=== PATIENT | female | born 1970 | race Caucasian/White ===

== ENCOUNTER 2017-01-25 16:27 | Emergency (ER) | payer OTHER ==
[~2017-01-25] VITALS: Ht 170.2 cm; Wt 72.6 kg
[2017-01-25 16:41] VITALS: BP 158/103
[2017-01-25 17:03] LABS: INFLUENZA A PATIENT NEGATIVE (NEGATIVE); INFLUENZA B PATIENT NEGATIVE (NEGATIVE)
--- NOTE | 2017-01-25 17:11 | PHYS DOC ---
Past History Past Medical History: Asthma Past Surgical History: Tonsillectomy Alcohol Use: Rarely Drug Use: None Adult General Chief Complaint Chief Complaint: FLU SYMPTOM HPI HPI Patient is a 46-year-old female presents with malaise. 46-year-old female history of mono in the past presents with malaise. She's been running a low-grade temperature at home. 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 She has no headache. No fevers over 99.6. No cough. She's been having whole-body pain. No specific chest pain. She's not been coughing up any sputum. She is currently on clindamycin for urinary tract infection. She's not had any diarrhea. No other complaints currently. Review of Systems Review of Systems Constitutional: Has had some chills Eyes: Denies change in visual acuity, redness, or eye pain HENT: Minimal sore throat Respiratory: Denies cough or shortness of breath Cardiovascular: No additional information not addressed in HPI GI: Denies abdominal pain, nausea, vomiting, bloody stools or diarrhea : Denies dysuria or hematuria Musculoskeletal: Denies back pain or joint pain Integument: Denies rash or skin lesions Neurologic: Denies headache, focal weakness or sensory changes Endocrine: Denies polyuria or polydipsia All other systems were reviewed and found to be within normal limits, except as documented in this note. Allergies Allergies Allergies Coded Allergies Type Severity Reaction Last Updated Verified No Known Drug Allergies 04/15/14 No Physical Exam Physical Exam Constitutional: Well developed, well nourished, no acute distress, non-toxic appearance. HENT: Normocephalic, atraumatic, bilateral external ears normal, oropharynx moist, no oral exudates, nose mild rhinorrhea. Eyes: PERRLA, EOMI, conjunctiva normal, no discharge. Neck: Normal range of motion, no tenderness, supple, no stridor. Cardiovascular:Heart rate regular rhythm, no murmur Lungs & Thorax: Bilateral breath sounds clear to auscultation Abdomen: Bowel sounds normal, soft, no tenderness, no masses, no pulsatile masses. Skin: Warm, dry, no erythema, no rash. Back: No tenderness, no CVA tenderness. Extremities: No tenderness, no cyanosis, no clubbing, ROM intact, no edema. Neurologic: Alert and oriented X 3, normal motor function, normal sensory function, no focal deficits noted. Psychologic: Affect normal, judgement normal, mood normal. Current Patient Data Vital Signs Vital Signs Date Time Temp Pulse Resp B/P (MAP) Pulse Ox O2 Delivery O2 Flow Rate FiO2 01/25/17 16:41 98.7 75 20 99 Room Air Lab Results Laboratory Tests Test 01/25/17 16:35 Influenza Type A (Rapid) Negative (NEGATIVE) Influenza Type B (Rapid) Negative (NEGATIVE) EKG EKG [] Radiology/Procedures Radiology/Procedures My interpretation of chest x-ray shows no acute cardiopulmonary findings.[] Course & Med Decision Making Course & Med Decision Making Pertinent Labs and Imaging studies reviewed. (See chart for details) Influenza is negative and patient agrees to further workup. Will order labs. Pt. Endorsed to Dr. Peña at 6 pm. Anticipated dismissal. See Dr. Erwin chart for details. Review of labs showed slightly elevated creatinine at 1.5. All labs were within normal limits. No findings of strep or flu. Did have some hematuria. Patient currently on her period. Pt. to follow up with primary. Tylenol, ibuprofen and benadryl over the counter. Review ED work up with primary Push fluids and fruit juices. Impression: 1. Viral Syndrome [] Dragon Disclaimer Dragon Disclaimer This electronic medical record was generated, in whole or in part, using a voice recognition dictation system. Departure Departure: Referrals: PARMJIT PEPPER (PCP) JAYY CEDILLO MD Jan 25, 2017 17:11 AYAKA GALARZA MD Jan 26, 2017 05:25
[2017-01-25 17:50] LABS: BASO % 1 % (0-3); EOS # 0.2 x10^3/uL (0.0-0.7); EOS % 2 % (0-3); HEMATOCRIT 40.1 % (36.0-47.0); HEMOGLOBIN 13.8 g/dL (12.0-15.5); LYMPH # 1.6 x10^3/uL (1.0-4.8); LYMPH % 19 % (24-48); MEAN CORPUSCULAR HEMOGLOBIN 30 pg (25-35); MEAN CORPUSCULAR HGB CONC 34 g/dL (31-37); MEAN CORPUSCULAR VOLUME 88 fL (79-100); MONO # 0.6 x10^3/uL (0.0-1.1); MONO % 7 % (0-9); NEUT # 5.9 x10^3uL (1.8-7.7); NEUT % 71 % (31-73); PLATELET COUNT 246 x10^3/uL (140-400); RED BLOOD COUNT 4.57 x10^6/uL (3.50-5.40); RED CELL DISTRIBUTION WIDTH 13.1 % (11.5-14.5); WHITE BLOOD COUNT 8.3 x10^3/uL (4.0-11.0)
[2017-01-25 17:59] LABS: ALBUMIN 3.8 g/dL (3.4-5.0); CALCIUM 9.8 mg/dL (8.5-10.1); CREATININE 0.5 mg/dL (0.6-1.0); POTASSIUM 3.8 mmol/L (3.5-5.1); TOTAL BILIRUBIN 0.3 mg/dL (0.2-1.0); TOTAL PROTEIN 7.8 g/dL (6.4-8.2)
[2017-01-25 18:07] LABS: MONONUCLEOSIS PATIENT NEGATIVE (NEGATIVE)
[2017-01-25 19:14] LABS: BILIRUBIN,URINE NEG (NEG); CLARITY,URINE CLEAR; COLOR,URINE STRAW; GLUCOSE,URINE NEG (NEG); NITRITE,URINE NEG (NEG); UROBILINOGEN,URINE 0.2 mg/dL (0.2 mg/dL)
[2017-01-25 19:15] LABS: BACTERIA,URINE 0 /HPF (0-FEW); RBC,URINE 20-40 /HPF (0-2); SQUAMOUS EPITHELIAL CELL,UR MOD /LPF
--- NOTE | 2017-01-26 08:02 | RAD ---
Single view chest 01/25/2017 Clinical indication: Extreme fatigue, mononucleosis. Comparison: None. Findings: Cardiac and mediastinal silhouettes are unremarkable. No pleural effusion, pneumothorax or focal consolidation. Impression: No acute cardiopulmonary abnormality.
== END 2017-01-25 20:15 | disposition home or self-care (01) ==
LOC: ER 16:27
DX: B34.9 Viral infection, unspecified (principal); J45.909 Unspecified asthma, uncomplicated; Z87.440 Personal history of urinary (tract) infections
CPT/HCPCS: 36415; 71010; 80053; 81001; 85025; 86308; 87070; 87086; 87804; 87880; 99285-25

== ENCOUNTER 2017-03-08 18:18 | Emergency (ER) | payer OTHER ==
[~2017-03-08] VITALS: Ht 170.2 cm; Wt 72.6 kg
[2017-03-08 18:20] VITALS: BP 139/89
--- NOTE | 2017-03-08 18:34 | ED.ADGEN ---
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 Patient hasn't had a flu vaccination this year. Patient has been exposed to multiple patient's that been sick. No recent travel. Patient normally healthy. Patient follows with Dr. Tico Cherry Review of Systems Review of Systems Constitutional: History of fever or chills [] Eyes: Denies change in visual acuity, redness, or eye pain [] HENT: History of nasal congestion and sore throat [] Respiratory: History of cough Cardiovascular: No additional information not addressed in HPI [] GI: Denies abdominal pain, nausea, vomiting, bloody stools or diarrhea [] : Denies dysuria or hematuria [] Musculoskeletal: Denies back pain or joint pain [] Integument: Denies rash or skin lesions [] Neurologic: Denies headache, focal weakness or sensory changes [] Endocrine: Denies polyuria or polydipsia [] All other systems were reviewed and found to be within normal limits, except as documented in this note. Family History Family History Noncontributory Current Medications Current Medications Current Medications Medications (Trade) Dose Ordered Sig/Makenna Start Time Stop Time Status Last Admin Dose Admin Oseltamivir Phosphate (Tamiflu) 75 mg 1X ONCE 03/08/17 19:45 03/08/17 19:46 DC 03/08/17 19:36 75 MG Allergies Allergies Allergies Coded Allergies Type Severity Reaction Last Updated Verified No Known Drug Allergies 04/15/14 No Physical Exam Physical Exam Constitutional: Well developed, well nourished, in moderately acute distress, non-toxic appearance. [] HENT: Normocephalic, atraumatic, bilateral external ears normal, oropharynx moist, injected pharynx, no oral exudates, nose swollen turbinates and rhinorrhea Eyes: PERRLA, EOMI, conjunctiva normal, no discharge. [] Neck: Normal range of motion, no tenderness, supple, no stridor. [] Cardiovascular:Heart rate regular rhythm, no murmur [] Lungs & Thorax: Bilateral breath sounds clear to auscultation [] Abdomen: Bowel sounds normal, soft, no tenderness, no masses, no pulsatile masses. [] Skin: Warm, dry, no erythema, no rash. [] Back: No tenderness, no CVA tenderness. [] Extremities: No tenderness, no cyanosis, no clubbing, ROM intact, no edema. [] Neurologic: Alert and oriented X 3, normal motor function, normal sensory function, no focal deficits noted. [] Psychologic: Affect normal, judgement normal, mood normal. [] Current Patient Data Lab Results Laboratory Tests Test 03/08/17 18:38 Influenza Type A (Rapid) Negative (NEGATIVE) Influenza Type B (Rapid) Positive (NEGATIVE) Group A Streptococcus Rapid Negative (NEGATIVE) EKG EKG [] Radiology/Procedures Radiology/Procedures [] Course & Med Decision Making Course & Med Decision Making Pertinent Labs and Imaging studies reviewed. (See chart for details) Push fluids. Tylenol and ibuprofen for discomfort. Take Tamiflu as directed. Vicoprofen for marked discomfort. Zofran for nausea. Follow-up primary care. [] Final Impression Final Impression 1. Viral syndrome 2. Influenza B[] Problems: Dragon Disclaimer Dragon Disclaimer This electronic medical record was generated, in whole or in part, using a voice recognition dictation system. AYAKA GALARZA MD Mar 08, 2017 18:34
[2017-03-08] MEDS ORDERED: HYDR-79 PO (18:45)
[2017-03-08] MEDS ORDERED: ONDA8TAB12 PO (18:45)
[2017-03-08 19:05] LABS: INFLUENZA A PATIENT NEGATIVE (NEGATIVE); INFLUENZA B PATIENT POSITIVE (NEGATIVE)
[2017-03-08] MEDS ORDERED: OSEL75CA PO (19:26)
[2017-03-08] MEDS ORDERED: OSELTAMIVIR 75 MG CAPSULE PO ONE (19:45)
== END 2017-03-08 19:40 | disposition home or self-care (01) ==
LOC: ER 18:18
DX: J10.1 Influenza due to other identified influenza virus with other respiratory manifestations (principal); B34.9 Viral infection, unspecified; J45.909 Unspecified asthma, uncomplicated
CPT/HCPCS: 87070; 87804; 87880; 99284

== ENCOUNTER → 2017-03-19 | Outpatient (CLI) | payer OTHER ==
[2017-03-08 18:20] VITALS: BP 139/89
[~2017-03-19] MED LIST: HYDR-79 PO; ONDA8TAB12 PO; OSEL75CA PO
--- NOTE | 2017-03-19 14:15 | RAD ---
2 Views of the Chest 03/19/2017 2:00 AM Indication: SHORT OF AIR Comparison: Chest radiograph January 25, 2017 Findings: There is no focal consolidation or infiltrate identified. There is no effusion or pneumothorax. The cardiomediastinal silhouette and pulmonary vasculature are within normal limits. No osseous abnormality is identified. Impression: No evidence of acute cardiopulmonary process.
== END | disposition home or self-care (01) ==
LOC: PMG 13:57
PROVIDERS: ATTEND Physician Assistant Medical
DX: R06.02 Shortness of breath (principal)
CPT/HCPCS: 71046

== ENCOUNTER → 2017-06-30 | Outpatient (CLI) | payer OTHER ==
--- NOTE | 2017-06-30 16:36 | RAD ---
PA and lateral chest radiograph. History: Lung nodule. Comparison: Chest radiograph March 19, 2017. CT calcium score May 29, 2017. Findings: Cardiomediastinal silhouette is within normal limits for size. Bilateral lung florina appear clear without evidence of infiltrate, effusion, or pneumothorax. No radiographic nodules identified. Of note, pulmonary nodule identified by CT referenced in history would likely not be radiographically apparent. Impression: 1. No acute cardiopulmonary process. 2. Pulmonary nodule referenced in report of the comparison CT calcium score was measured at 5 mm. This would likely not be radiographically apparent. Electronically signed by: Freddy Velazquez MD (06/30/2017 4:32 PM) [facility]
== END | disposition home or self-care (01) ==
LOC: PMG 15:30
PROVIDERS: ATTEND Physician Assistant Medical
DX: R91.1 Solitary pulmonary nodule (principal)
CPT/HCPCS: 71046

== ENCOUNTER → 2017-12-18 | Outpatient (CLI) | payer OTHER ==
--- NOTE | 2017-12-18 13:58 | RAD ---
CT chest without contrast 12/18/2017 CLINICAL INDICATION: Pulmonary nodule. COMPARISON: CT coronary arteries 05/29/2017 TECHNIQUE: Multiple CT images of the chest were obtained without contrast. *One or more of the following individualized dose reduction techniques were utilized for this examination: 1. Automated exposure control. 2. Adjustment of the mA and/or kV according to patient size. 3. Use of iterative reconstruction technique. FINDINGS: Heart size is normal without significant pericardial effusion. No axillary, mediastinal or hilar lymphadenopathy. The central airways are patent. There is a 0.4 cm noncalcified pulmonary nodule in the subpleural lateral left left lower lobe near the costophrenic sulcus series 2/image 260. No pleural effusion or pneumothorax. No destructive osseous lesions. IMPRESSION: Small left lower lobe noncalcified pulmonary nodule measuring 0.4 cm. In a low-risk patient, no additional follow-up is necessary. In a high-risk patient, follow-up CT chest in 6 months is recommended. Electronically signed by: Lobo Villa MD (12/18/2017 1:54 PM) [id number]
== END | disposition home or self-care (01) ==
LOC: CT 12:47
PROVIDERS: ATTEND Physician Assistant Medical
DX: R91.1 Solitary pulmonary nodule (principal)
CPT/HCPCS: 71250

== ENCOUNTER 2018-01-24 23:31 | Emergency (ER) | payer OTHER ==
[~2018-01-24] VITALS: Ht 170.2 cm; Wt 72.6 kg
[~2018-01-24 23:31] MED LIST changes: +HYDR-1179 PO; -HYDR-79 PO
[2018-01-24 23:45] VITALS: BP 139/80
[2018-01-24] MEDS ORDERED: FLUT9.9S NS (23:46)
[2018-01-24] MEDS ORDERED: MULT1TAB52 PO (23:48)
[2018-01-24] MEDS ORDERED: flexeril (23:48)
[2018-01-24] MEDS ORDERED: TRAM50TA PO (23:48)
[2018-01-24] MEDS ORDERED: [UNRECOGNIZED DRUG - OTHER] (23:48)
[2018-01-24] MEDS ORDERED: AMOXICILLIN/K CLAV 875/125MG TABLET. ONE (23:56)
[2018-01-25] MEDS ORDERED: DIPHTH,PERTUSS(ACELL),TET TOX 0.5 ML DISP.SYRIN. VAX IM ONE
[2018-01-25] MEDS ORDERED: AMOX1TAB61 PO (00:08)
[2018-01-25] MEDS ORDERED: AMOXICILLIN/K CLAV 875/125MG TABLET. PO ONE (00:15)
--- NOTE | 2018-01-25 06:40 | ED.ADGEN ---
Past History Past Medical History: Asthma Past Surgical History: Tonsillectomy Alcohol Use: Occasionally Drug Use: None Adult General Chief Complaint Chief Complaint Multiple complaints HPI HPI Patient is a 47-year-old right-handed female who presents with multiple medical complaints. Patient complaints of puncture wound to left palm by chickenwire 12 hours prior to ED arrival and Scratched in bite to right forearm prior to ED arrival. Patient's tetanus is out of date. Minimal clear drainage from punctate wound over left palm, no surrounding erythema or fluctuance or tenderness. Patient denies foreign body sensation, superficial Bite/scratch to extensor forearm. Wounds washed prior to ED arrival.[] Review of Systems Review of Systems Review symptoms as per history of present illness. All other systems were reviewed and found to be within normal limits, except as documented in this note. Current Medications Current Medications Current Medications Medications (Trade) Dose Ordered Sig/Makenna Start Time Stop Time Status Last Admin Dose Admin Amoxicillin/ Clavulanate Potassium (Augmentin 875/ 125mg) 1 tab 1X ONCE 01/25/18 00:15 01/25/18 00:16 DC 01/25/18 00:15 1 TAB Diphtheria/ Tetanus/Acell Pertussis (Boostrix) 0.5 ml ONCE ONCE 01/25/18 00:00 01/25/18 00:12 DC 01/25/18 00:03 0.5 ML Allergies Allergies Allergies Coded Allergies Type Severity Reaction Last Updated Verified No Known Drug Allergies 01/24/18 No Physical Exam Physical Exam Constitutional: Well developed, well nourished, no acute distress, non-toxic appearance. [] Extremities: Minimal clear drainage from punctate wound over left palm, no surrounding erythema or fluctuance or tenderness. Patient denies foreign body sensation, superficial Bite/scratch to extensor forearm [] Current Patient Data Vital Signs Vital Signs Date Time Temp Pulse Resp B/P (MAP) Pulse Ox O2 Delivery O2 Flow Rate FiO2 01/24/18 23:45 97.7 78 20 98 Room Air EKG EKG [] Radiology/Procedures Radiology/Procedures [] Course & Med Decision Making Course & Med Decision Making Pertinent Labs and Imaging studies reviewed. (See chart for details) [Tetanus updated] Final Impression Final Impression [1. Puncture wound left hand 2. Cat scratch right forerarm] Dragon Disclaimer Dragon Disclaimer This electronic medical record was generated, in whole or in part, using a voice recognition dictation system. OPAL GONZALEZ DO Jan 25, 2018 06:40
== END 2018-01-25 00:12 | disposition home or self-care (01) ==
LOC: ER 23:31
DX: S61.432A Puncture wound without foreign body of left hand, initial encounter (principal); S50.811A Abrasion of right forearm, initial encounter; W55.03XA Scratched by cat, initial encounter; W22.8XXA Striking against or struck by other objects, initial encounter; Y93.89 Activity, other specified; Y92.89 Other specified places as the place of occurrence of the external cause; Y99.8 Other external cause status
CPT/HCPCS: 90471; 90715; 99283-25

== ENCOUNTER → 2018-03-19 | Outpatient (CLI) | payer OTHER ==
[~2018-03-19] MED LIST changes: +AMOX1TAB61 PO; +FLUT9.9S NS; +MULT1TAB52 PO; +TRAM50TA PO; +[UNRECOGNIZED DRUG - OTHER]; +flexeril
--- NOTE | 2018-03-19 17:42 | RAD ---
Indication: Neck pain radiating down to the left for 6 months. TECHNIQUE: Multiple views of the cervical spine COMPARISON: None FINDINGS: The cervical spine is in normal anatomic alignment. Atlantoaxial joint interval is preserved. No compression deformities. Intervertebral disc space narrowing seen at C6-C7. Facet joints are in normal anatomic alignment without significant facet arthropathy. Prevertebral soft tissues within normal limits. No bony narrowing of the neuroforamina. Visualized lung apices are clear. IMPRESSION: Degenerative disc disease at C6-C7. Electronically signed by: Beau Marlow DO (03/19/2018 5:37 PM) [facility]
== END | disposition home or self-care (01) ==
LOC: DXRAD 16:35
PROVIDERS: ATTEND Physician Assistant
DX: M50.323 Other cervical disc degeneration at C6-C7 level (principal); M48.02 Spinal stenosis, cervical region
CPT/HCPCS: 72050

== ENCOUNTER → 2019-03-08 | Outpatient (CLI) | payer OTHER | END | disposition home or self-care (01) | LOC: PMG 14:25 → EDBD 14:25 | PROVIDERS: ATTEND Physician Assistant Medical | DX: Z00.00 Encounter for general adult medical examination without abnormal findings (principal) | CPT/HCPCS: 88175 ==

== ENCOUNTER → 2020-07-07 | Outpatient (CLI) | payer OTHER, BC ==
[~2020-07-07] MED LIST changes: +MULT-445 PO; -MULT1TAB52 PO
[2020-07-07 12:16] LABS: BASO % 0 % (0-3); EOS # 0.1 x10^3/uL (0.0-0.7); EOS % 1 % (0-3); HEMATOCRIT 41.6 % (36.0-47.0); LYMPH # 1.4 x10^3/uL (1.0-4.8); LYMPH % 14 % (24-48); MEAN CORPUSCULAR HEMOGLOBIN 30 pg (25-35); MEAN CORPUSCULAR HGB CONC 34 g/dL (31-37); MEAN CORPUSCULAR VOLUME 89 fL (79-100); MONO # 0.6 x10^3/uL (0.0-1.1); MONO % 6 % (0-9); NEUT # 8.3 x10^3uL (1.8-7.7); NEUT % 80 % (31-73); PLATELET COUNT 300 x10^3/uL (140-400); RED BLOOD COUNT 4.66 x10^6/uL (3.50-5.40); RED CELL DISTRIBUTION WIDTH 13.5 % (11.5-14.5); WHITE BLOOD COUNT 10.4 x10^3/uL (4.0-11.0)
[2020-07-07 12:34] LABS: ALBUMIN 3.9 g/dL (3.4-5.0); ALBUMIN/GLOBULIN RATIO 0.9 (1.0-1.7); C REACTIVE PROTEIN 14.4 mg/L (0-3.3); CALCIUM 10.1 mg/dL (8.5-10.1); CREATININE 0.6 mg/dL (0.6-1.0); GFR 107.2; POTASSIUM 3.9 mmol/L (3.5-5.1); TOTAL BILIRUBIN 0.5 mg/dL (0.2-1.0); TOTAL PROTEIN 8.3 g/dL (6.4-8.2); URIC ACID 4.1 mg/dL (2.6-6.0)
[2020-07-07 17:46] LABS: SEDIMENTATION RATE 12 (0-25)
[2020-07-08 01:10] LABS: RHEUMATOID FACTOR <10.0 IU/mL (0.0-13.9)
[2020-07-08 12:18] LABS: FREE T4 0.84 ng/dL (0.76-1.46); THYROID STIM HORMONE (TSH) 1.955 uIU/mL (0.358-3.740)
== END ==
LOC: LAB 11:32
PROVIDERS: ATTEND Physician Assistant Medical
DX: R53.83 Other fatigue (principal)
CPT/HCPCS: 36415; 80053; 80061; 84439; 84443; 84550; 85025; 85651; 86038; 86140; 86431

== ENCOUNTER → 2020-09-01 | Outpatient (CLI) | payer OTHER | LOC: LAB 14:55 | PROVIDERS: ATTEND Internal Medicine Cardiovascular Disease | DX: Z20.822 Contact with and (suspected) exposure to COVID-19 (principal) | CPT/HCPCS: U0003; U0005 ==

== ENCOUNTER → 2020-09-05 | Outpatient (CLI) | payer OTHER ==
--- NOTE | 2020-09-05 14:25 | RAD ---
XR FOOT_RIGHT 3 VIEWS 09/05/2020 2:15 PM Indication: RIGHT FOOT PAIN, GLASS DOOR FELL ON 3 WEEKS AGO HEEL PAIN Comparison: None Technique: 3 views of the right foot Findings: There is no acute fracture or dislocation. The joint spaces are well-maintained. Os navicularis noted . A tiny curvilinear density is seen overlying the nail of the first digit. The soft tissues are with in normal limits. Impression: 1. No acute osseous abnormality to explain patient's heel pain. 2. Tiny curvilinear density over the nail of the first digit may be a foreign body or related to the nail itself. Electronically signed by: Javy Blanchard (09/05/2020 2:23 PM) [id number]
== END ==
LOC: RAD 08:25
PROVIDERS: ATTEND Physician Assistant Medical
DX: R50.9 Fever, unspecified (principal); S99.922A Unspecified injury of left foot, initial encounter; Z20.822 Contact with and (suspected) exposure to COVID-19; X58.XXXA Exposure to other specified factors, initial encounter; Y93.89 Activity, other specified; Y92.89 Other specified places as the place of occurrence of the external cause; Y99.8 Other external cause status
CPT/HCPCS: 73630; U0005; U0003

== ENCOUNTER → 2020-09-29 | Outpatient (CLI) | payer OTHER ==
[2020-09-29 13:32] LABS: BASO % 0 % (0-3); EOS # 0.1 x10^3/uL (0.0-0.7); EOS % 1 % (0-3); HEMATOCRIT 39.9 % (36.0-47.0); HEMOGLOBIN 13.4 g/dL (12.0-15.5); LYMPH # 1.4 x10^3/uL (1.0-4.8); LYMPH % 21 % (24-48); MEAN CORPUSCULAR HEMOGLOBIN 30 pg (25-35); MEAN CORPUSCULAR HGB CONC 34 g/dL (31-37); MEAN CORPUSCULAR VOLUME 91 fL (79-100); MONO # 0.4 x10^3/uL (0.0-1.1); MONO % 6 % (0-9); NEUT # 4.9 x10^3uL (1.8-7.7); NEUT % 71 % (31-73); PLATELET COUNT 331 x10^3/uL (140-400); RED CELL DISTRIBUTION WIDTH 13.7 % (11.5-14.5); WHITE BLOOD COUNT 6.9 x10^3/uL (4.0-11.0)
[2020-09-29 13:40] LABS: ALBUMIN 3.9 g/dL (3.4-5.0); ALBUMIN/GLOBULIN RATIO 1.1 (1.0-1.7); CALCIUM 9.5 mg/dL (8.5-10.1); CREATININE 0.6 mg/dL (0.6-1.0); GFR 107.2; POTASSIUM 4.8 mmol/L (3.5-5.1); TOTAL BILIRUBIN 0.2 mg/dL (0.2-1.0); TOTAL PROTEIN 7.4 g/dL (6.4-8.2)
[2020-10-02 17:07] LABS: GLIA IGA 5 units (0-19); GLIA IGG 2 units (0-19); TRANSGLUTAMINASE IGA AB <2 U/mL (0-3); TRANSGLUTAMINASE IGG AB 2 U/mL (0-5)
== END ==
LOC: LAB 11:32
PROVIDERS: ATTEND Physician Assistant Medical
DX: B08.4 Enteroviral vesicular stomatitis with exanthem (principal); R06.00 Dyspnea, unspecified; R53.83 Other fatigue; R41.3 Other amnesia; R10.9 Unspecified abdominal pain
CPT/HCPCS: 36415; 80053; 83516; 85025; 86617; 86618